=== PATIENT | male | born 1960 | race Caucasian/White ===

== ENCOUNTER 2017-11-30 05:41 | Day surgery (SDC) | payer OTHER ==
[~2017-11-30] VITALS: Ht 170.2 cm; Wt 106.5 kg
[~2017-11-30 05:41] MED LIST: BONINE25 MG PO; CYMBALTA30 MG PO; CYMBALTA60 MG PO; Cymbalta PO; Ecotrin PO; HYDROCHLOROTHIA25 MG PO; METFORMIN HCL500 MG PO; NEXIUM40 MG PO; OMEPRAZOLE10 M1 PO; OMEPRAZOLE20 MG PO; PRAVASTATIN SOD40 MG PO; Toprol XL PO
[2017-11-30 05:57] VITALS: BP 141/96
[2017-11-30 06:48] LABS: CHLORIDE 96 MEQ/L (99-109); GFR ESTIMATE (CALCULATED) > 59 mL/min/ (58.99-99999); GLUCOSE 171 mg/dL (70-99); POTASSIUM 3.2 MEQ/L (3.7-5.4); SODIUM 138 MEQ/L (136-147); UREA NITROGEN (BUN) 21 mg/dL (9-23)
[2017-11-30] MEDS ORDERED: NORCO 5/3251 TABLET PO (09:40)
[2017-11-30 10:30] VITALS: BP 124/76
[2017-11-30 11:20] VITALS: BP 134/80
== END 2017-11-30 11:30 | disposition home or self-care (01) ==
LOC: SDC 05:41
PROVIDERS: Surgery
PROC: 0YU50JZ Supplement Right Inguinal Region with Synthetic Substitute, Open Approach (ICD-10-PCS; principal; 2017-11-30)
DX: K40.90 Unilateral inguinal hernia, without obstruction or gangrene, not specified as recurrent (principal); N43.3 Hydrocele, unspecified; I10 Essential (primary) hypertension; E11.9 Type 2 diabetes mellitus without complications; E78.5 Hyperlipidemia, unspecified; K21.0 Gastro-esophageal reflux disease with esophagitis; E66.9 Obesity, unspecified; Z68.36 Body mass index [BMI] 36.0-36.9, adult; Z85.6 Personal history of leukemia; Z79.84 Long term (current) use of oral hypoglycemic drugs
CPT/HCPCS: 80048; 82948; 93005; C1781; J0690; J2250; J3010; S0020